=== PATIENT | female | born 1990 | race Asian ===

== ENCOUNTER → 2016-11-23 01:10 | Emergency (ER) | payer OTHER ==
[~2016-11-23 01:10] MED LIST: diPHENhydraMINE PO* 25 MG PO ONE; predniSONE TAB* 20 MG PO ONE
[2016-11-23 02:40] VITALS: BP 115/66
--- NOTE | 2016-11-23 07:39 | ED ---
Luis Cisse Abhishek, scribed for Osman Cotton MD on 11/23/16 at 0605 . Skin Complaint - HPI Summary HPI Summary: This patient is a 26 year old F presenting to [facility] with a chief complaint of urticaria since Sunday. The CC is described as intermittent and became worse since last night. The patient rates the pain 0/10 in severity. Symptoms aggravated by nothing. Symptoms alleviated by nothing. Patient reports pruritus , cc primarily on legs but all over body, edema and abrasion s/p on LLE, dry cough, and post nasal drip. Patient denies trouble breathing, and swallowing. PMHx includes bipolar disorder. - History of Current Complaint Chief Complaint: EDAllergicReaction Time Seen by Provider: 11/23/16 04:05 Stated Complaint: HIVES Pain Intensity: 0 Pain Scale Used: 0-10 Numeric PMH/Surg Hx/FS Hx/Imm Hx Psychiatric History: Reports: Hx Bipolar Disorder Infectious Disease History: No Infectious Disease History: Denies: Traveled Outside the [place] in Last 30 Days - Social History Alcohol Use: Rare Substance Use Type: Reports: None Smoking Status (MU): Never Smoked Tobacco Review of Systems Constitutional: Negative Eyes: Negative Positive: Nasal Discharge - post nasal drip Positive: Cough - dry. Negative: Shortness Of Breath Positive: Other - Negative trouble swallowing Genitourinary: Negative Positive: Edema - Upper LLE Positive: Other - urticaria (intermittent and worse since last night) Neurological: Negative Psychological: Normal All Other Systems Reviewed And Are Negative: Yes Physical Exam - Summary Physical Exam Summary: General: well-appearing, no pain distress Skin: diffuse scattered hives on the legs and arms Head: normal Eyes: EOMI, SURAJ ENT: oral pharynx is open with no stridor, Neck: supple, nontender Respiratory: CTA, breath sounds present Cardiovascular: RRR Abdomen: soft, nontender Bowel: present Musculoskeletal: normal, strength/ROM intact Neurological: normal, sensory/motor intact, A&O x3 Psychological: affect/mood appropriate Triage Information Reviewed: Yes Vital Signs On Initial Exam: Initial Vitals Temp Pulse Resp BP Pulse Ox 98.0 F 80 16 114/67 98 11/23/16 01:10 11/23/16 01:10 11/23/16 01:10 11/23/16 01:10 11/23/16 01:10 Vital Signs Reviewed: Yes - Janina Coma Scale Coma Scale Total: 15 Diagnostics - Vital Signs Vital Signs Temp Pulse Resp BP Pulse Ox 11/23/16 02:35 97.9 F 88 16 115/66 98 11/23/16 01:10 98.0 F 80 16 114/67 98 - Laboratory Lab Statement: Any lab studies that have been ordered have been reviewed, and results considered in the medical decision making process. Course/Dx - Course Course Of Treatment: Allergy not noted. Medication reviewed. NO CRITICAL CARE TIME. - Diagnoses Provider Diagnoses: Allergic reaction Discharge - Discharge Plan Condition: Stable Disposition: HOME Prescriptions: predniSONE TAB* [Deltasone TAB*] 40 mg PO DAILY PRN #8 tab PRN Reason: Allergy Symptoms Patient Education Materials: General Allergic Reaction (ED) Referrals: [facility] - Angel SMALLWOOD [Primary Care Provider] - Additional Instructions: FOLLOW UP WITH YOUR DOCTOR. TAKE BENADRYL 25MG EVERY 4 HOURS NEEDED. TAKE PREDNISONE DIRECTED NEEDED. RETURN TO THE EMERGENCY DEPARTMENT FOR ANY WORSENING OF YOUR CONDITION; WORSENING RASH, DIFFICULTY WITH BREATHING OR SWALLOWING OR QUESTIONS OR CONCERNS. The documentation as recorded by the Luis ely Abhishek accurately reflects the service I personally performed and the decisions made by me, Osman Cotton MD.
== END | disposition home or self-care (01) ==
LOC: ED 01:10
DX: T78.40XA Allergy, unspecified, initial encounter (principal); R05 Cough; X58.XXXA Exposure to other specified factors, initial encounter
CPT/HCPCS: 99282; A9270-GY; J7512

== ENCOUNTER 2018-06-22 18:09 | Emergency (ER) | payer OTHER ==
[2018-06-22 18:15] VITALS: BP 112/74
== END 2018-06-22 18:33 | disposition left against medical advice (07) ==
LOC: ED 18:09
DX: Z53.21 Procedure and treatment not carried out due to patient leaving prior to being seen by health care provider (principal)
CPT/HCPCS: 99282